=== PATIENT | male | born 1960 | race African-American/Black ===

== ENCOUNTER 2024-09-01 18:01 | Emergency (ER) | payer MEDICAID, SELFPAY ==
[2024-09-01 18:18] VITALS: BP 99/60; PULSE 73; RESP 18; TEMP 36.7; O2SAT 98; BMI 27.1
--- NOTE | 2024-09-01 18:32 | ED.GENADULT ---
HPI - General Adult General Chief complaint: General Medical Stated complaint: dizziness fall with headstrike Time Seen by Provider: 09/01/24 18:25 Source: patient Mode of arrival: EMS Limitations: no limitations History of Present Illness ED Provider: HPI narrative: Patient no significant past medical history came from homeless custodial for nausea vomiting started earlier today vomited about 2 times does have dry cough on arrival patient's asking for the food said that he did not eat food for last 2 days because he did not have any money to buy the food no diarrhea no recent travel no use of antibiotics Related Data Previous Rx's ?Medication ?Instructions ?Recorded ibuprofen 600 mg tablet 600 mg PO Q6H PRN fever or pain 09/01/24 #30 tabs ondansetron 4 mg disintegrating 4 mg PO Q6-8H PRN nausea and 09/01/24 tablet vomiting #7 tabs oseltamivir 75 mg capsule (Tamiflu) 75 mg PO BID 5 days #10 caps 09/01/24 Allergies Allergy/AdvReac Type Severity Reaction Status Date / Time Peanut Butter Allergy Anaphylaxis Verified 09/01/24 18:22 seafood Allergy Anaphylaxis Verified 09/01/24 18:22 Review of Systems Review of Systems: Yes all other systems are reviewed and are negative PMFSH Social History Social History Smoked in Last 30 Days: No Use of substances other than those prescribed or required for medical reasons: No Advance Directives: No Advance Directives Information Provided: Yes Do you have a plan to hurt others: No Plan Physical Exam ED Vital Signs: Vital Signs - 24 hr 09/01/24 18:18 Temperature 98.0 F Pulse Rate 73 Respiratory Rate 18 Blood Pressure 99/60 Pulse Oximetry 98 Oxygen Delivery Method Room Air BMI result Body Mass Index 27.1 Appearance: Alert. Oriented X3. No acute distress. Eyes: No pallor or icterus ENT: Pharynx normal. Oral Mucosa moist Neck: Normal inspection. Neck supple. CVS: Normal heart rate and rhythm. Pulses normal. Respiratory: No respiratory distress. Equal air entry bilateral, no wheezing/rales/rhonchi Abdomen: Soft and nontender. Bowel sounds are present, no mass palpable, no CVA tenderness Skin: Skin warm and dry. Normal skin color. Normal skin turgor. Extremities: No lower extremity edema. No calf tenderness Neuro: Oriented X 3. No motor deficit. Medications Administered Discontinued Medications Generic Name Dose Route Start Last Admin Trade Name Freq PRN Reason Stop Dose Admin Ondansetron HCl 4 mg 09/01/24 18:38 09/01/24 18:49 Ondansetron Hcl 4 Mg/2 Ml Vial IVPUSH 09/01/24 18:39 4 mg ONCE ONE Administration Oseltamivir Phosphate 75 mg 09/01/24 19:42 09/01/24 19:53 Oseltamivir Phosphate 75 Mg Capsule PO 09/01/24 19:43 75 mg ONCE ONE Administration Medical Decision Making Medical Decision Making MDM Narrative: Patient's influenza A with vomiting felt better after Zofran had p.o. fluids and food in the ER will discharge patient home on supportive treatment Lab Data [facility] Lab Attestation statement: I reviewed the patient's lab results. 09/01/24 18:48 09/01/24 18:48 Labs: Lab Results 09/01/24 Range/Units 18:48 WBC 5.1 (4.8-10.8) X10*3/uL RBC 4.49 L (4.60-5.80) X10*6/uL Hgb 12.3 L (14.0-18.0) g/dl Hct 37.0 L (42.0-52.0) % MCV 82.4 (80.0-98.0) fL MCH 27.4 (27.0-33.0) pg MCHC 33.2 (31.0-36.0) g/dl RDW 14.9 (11.0-16.0) % Plt Count 154 L (160-400) X10*3/uL MPV 9.3 L (9.4-12.4) fL Immature Gran % (Auto) 0.2 (0.0-0.4) % Neut % (Auto) 71.6 (45-73) % Lymph % (Auto) 14.1 L (20-40) % [place] % (Auto) 12.9 H (2-11) % Eos % (Auto) 1.0 (0-4) % Baso % (Auto) 0.2 (0-2) % Lymph # (Auto) 0.7 L (1.2-4.9) X10*3/uL [place] # (Auto) 0.7 (0.1-1.2) X10*3/uL Eos # (Auto) 0.1 (0.0-0.4) X10*3/uL Baso # (Auto) 0.0 (0.0-0.2) X10*3/uL Abs Immat Gran (auto) 0.01 (0.00-0.03) X10*3/uL Absolute Neuts (auto) 3.7 (2.0-8.3) x10*3/uL Absolute Nucleated RBC 0.000 (0.0-0.012) X10*3/uL Nucleated RBC % (auto) 0.0 (0.0-0.2) /100WBC Sodium 137 (135-145) mmol/L Potassium 3.7 (3.3-5.1) mmol/L Chloride 107 (96-108) mmol/L Carbon Dioxide 21 L (22-29) mmol/L Anion Gap 13 (12-20) BUN 17 H (9-16) mg/dL Creatinine 1.13 (0.5-1.4) mg/dL Estim Creat Clear Calc 72.4 Estimated GFR > 60 Random Glucose 98 (60-115) mg/dL Calcium 8.1 L (8.4-10.2) mg/dL Magnesium 2.0 (1.6-2.6) mg/dL Total Bilirubin 0.4 (0.0-1.0) mg/dL AST 20 (5-37) U/L ALT 13 (0-40) U/L Alkaline Phosphatase 52 (39-117) U/L Total Protein 6.7 (6.5-8.0) g/dL Albumin 3.8 (3.5-5.0) g/dL Lipase 17 (8-78) U/L Influenza Type A (PCR) POSITIVE A (Negative) Influenza Type B (PCR) NEGATIVE (Negative) RSV RNA Qual (PCR) NEGATIVE (Negative) SARS-CoV-2 RNA (RT-PCR) NEGATIVE (Negative) Discharge Plan Discharge Clinical Impression: Influenza A Patient Disposition: Home, Self-Care Instructions: Influenza (ED) Additional Instructions: Drink plenty of fluids You have influenza Tamiflu for flu Tylenol /Motrin for pain Zofran for nausea as prescribed Social distancing as advised Prescriptions: New ibuprofen 600 mg tablet 600 mg PO Q6H PRN (Reason: fever or pain) Qty: 30 0RF oseltamivir [Tamiflu] 75 mg capsule 75 mg PO BID 5 Days Qty: 10 0RF ondansetron 4 mg tablet,disintegrating 4 mg PO Q6-8H PRN (Reason: nausea and vomiting) Qty: 7 0RF Print Language: Azeri
[2024-09-01] MEDS: ondansetron HCL 4 MG/2 ML VIAL IVPUSH (18:49)
[2024-09-01 18:53] LABS: MANUAL DIFF FLAG NO
[2024-09-01 19:01] LABS: Basophils Percent Auto 0.2 % (0-2); Eosinophils Absolute Auto 0.1 X10*3/uL (0.0-0.4); Hemoglobin 12.3 g/dl (14.0-18.0); Imm Gran Abs Auto 0.01 X10*3/uL (0.00-0.03); Imm Gran Pct Auto 0.2 % (0.0-0.4); Lymphocytes Absolute Auto 0.7 X10*3/uL (1.2-4.9); Lymphocytes Percent Auto 14.1 % (20-40); Mean Corpuscular HGB Conc 33.2 g/dl (31.0-36.0); Mean Corpuscular Hemoglobin 27.4 pg (27.0-33.0); Mean Corpuscular Volume 82.4 fL (80.0-98.0); Mean Platelet Volume 9.3 fL (9.4-12.4); Monocytes Absolute Auto 0.7 X10*3/uL (0.1-1.2); Monocytes Percent Auto 12.9 % (2-11); Neutrophils Absolute Auto 3.7 x10*3/uL (2.0-8.3); Neutrophils Percent Auto 71.6 % (45-73); Platelet Count 154 X10*3/uL (160-400); Red Blood Count 4.49 X10*6/uL (4.60-5.80); Red Cell Distribution Width 14.9 % (11.0-16.0); White Blood Count 5.1 X10*3/uL (4.8-10.8)
[2024-09-01 19:12] LABS: Alanine Aminotransferase 13 U/L (0-40); Albumin Level 3.8 g/dL (3.5-5.0); Alkaline Phosphatase 52 U/L (39-117); Anion Gap 13 (12-20); Aspartate Amino Transferase 20 U/L (5-37); Bilirubin Total 0.4 mg/dL (0.0-1.0); Blood Urea Nitrogen 17 mg/dL (9-16); Calcium 8.1 mg/dL (8.4-10.2); Carbon Dioxide 21 mmol/L (22-29); Chloride 107 mmol/L (96-108); Creatinine Clr Calc Pharmacy 72.4; Estimated Glomerular Filt Rate > 60; Glucose Random 98 mg/dL (60-115); Lipase 17 U/L (8-78); Potassium 3.7 mmol/L (3.3-5.1); Sodium 137 mmol/L (135-145); Total Protein 6.7 g/dL (6.5-8.0)
--- NOTE | 2024-09-01 19:29 | PC.NURSE ---
pt a&o, warm up dinner tray, per provider okay to eat.
[2024-09-01 19:31] LABS: Influenza A PCR POSITIVE (Negative); Influenza B PCR NEGATIVE (Negative); Resp Syncy Virus RNA Qual PCR NEGATIVE (Negative); SARS COV2 PCR INHOUSE NEGATIVE (Negative)
--- OUTSIDE RECORDS SUMMARY | 2024-09-01 19:41 | XMS_ITS | Clinical Summary ---
Author Organization [facility] Address [address] [place] [address] Phone Care Team Providers Care Ore Feeder Name Role Phone Zeenat Hanna PA Primary Care Provider Vanda vailable Allergies Active Allergy Reactions Criticality Noted Date Comments Peanut Swelling 09/17/2022 Peanut Butter Flavor 07/28/2023 Shellfish Containing Products Rash,Swelling 09/21/2022 Shellfish Derived Rash,Swelling 11/28/2013 Pt states he gets a rash and his tongue swells Medications No known medications Encounters Date Type Department Care Team Description 06/11/2024 11:55 PM EST - 06/12/2024 1:[address] [facility] [address] [place] [address] Substance abuse ([facility]) (Primary Dx) Discharge Disposition: Home or Self Care from Last 3 Months Medical History Medical History Date Comments Asthma Hyperlipidemia Social History Tobacco Use Types Packs/Day Years Used Date Smoking Tobacco: Former Cigarettes Smokeless Tobacco: Never Tobacco Cessation:Counseling Given: Not Answered Alcohol Use Standard Drinks/Week Comments Not Currently 0 (1 standard drink = 0.6 oz pur e alcohol) Sex and Gender Information Value Date Recorded Sex Assigned at Not on file Gender Identity Not on file Sexual Orientation Not on file Job Start Date Occupation Industry Not on file Not on file Not on file Obstetrics History Last Filed Vital Signs Vital Sign Reading Time Taken Comments Blood Pressure 117/69 06/11/2024 10:13 PM EST Pulse 72 06/11/2024 10:13 PM EST Temperature 37.1 ??C (98.8 ??F) 06/11/2024 10:[address] Respiratory Rate 18 06/11/2024 10:13 PM EST Oxygen Saturation 100% 06/11/2024 10:13 PM EST Inhaled Oxygen Concentration - - Weight 89.4 kg (197 lb) 06/11/2024 10:13 PM EST Height 165.1 cm (5' 5 ) 06/11/2024 10:13 PM EST Body Mass Index 32.78 06/11/2024 10:13 PM EST Plan of Treatment Health Maintenance Due Date Last Done Comments Pneumococcal Vaccine: Pediatrics (0 to 5 Years) and At-Risk Patients (6 to 64 Years) (1 of 2 - PCV) 1966 Zoster Vaccines (1 of 2) 2010 RSV Immunization Patients 60+ Years Old (1 - Risk 60-74 years 1-dose series) 2020 Colorectal Cancer Screening: Colonoscopy 07/10/2022 Hepatitis C Screening 07/10/2022 Social Influencers of Health Screening 07/10/2022 COVID-19 Vaccine ( season) 2024 10/06/2020, 09/08/2020 Influenza Vaccine (#1) 2024 Depression Screening 05/28/2025 05/28/2024 Cholesterol Screening (Lipid Panel) 10/05/2027 10/05/2022, 10/05/2022, 01/02/2021, Additional history exists DTaP,Tdap,and Td Vaccines (2 - Td or Tdap) 01/02/2031 01/02/2021 HIV Screening Completed 08/15/2019 Hepatitis A Vaccines Completed 09/17/2022, 08/07/20 08 HIB Vaccines Aged Out No longer eligi ble based on patient's age to complete this topic HPV Vaccines Aged Out No longer eligi ble based on patient's age to complete this topic Hepatitis B Vaccines Aged Out No long er eligible based on patient's age to complete this topic IPV Vaccines Aged Out No longer eligi ble based on patient's age to complete this topic MMR Vaccines Aged Out No longer eligi ble based on patient's age to complete this topic Meningococcal ACWY Vaccine Aged Out N o longer eligible based on patient's age to complete this topic RSV Immunization Patients Under 20 months Aged Out No longer eligible based on patient's age to complete this topic Varicella Vaccines Aged Out No longer eligible based on patient's age to complete this topic Procedures Procedure Name Priority Date/Time Associated Diagnosis Comments ECG 12-LEAD STAT 06/11/2024 10:56 PM EST CBC WITH AUTO DIFFERENTIAL STAT 06/11/2024 10:50 PM EST METHADONE SCREEN, URINE STAT 06/11/2024 10:50 PM EST PHENCYCLIDINE, URINE STAT 06/11/2024 10:50 PM EST BUPRENORPHINE SCREEN, URINE STAT 06/11/2024 10:50 PM EST CBC AND DIFFERENTIAL STAT 06/11/2024 10:50 PM EST COMPREHENSIVE METABOLIC PANEL STAT 06/11/2024 10:50 PM EST LIPASE STAT 06/11/2024 10:50 PM EST MAGNESIUM STAT 06/11/2024 10:50 PM EST ETHANOL STAT 06/11/2024 10:50 PM EST DRUG ABUSE SCREEN 8A PANEL, URINE STAT 06/11/2024 10:50 PM EST ECG ANNOTATED 06/11/2024 from Last 3 Months Results * ECG 12 lead (06/11/2024 10:56 PM EST) Ventricular Rate ECG 70 BPM GEMUSE Atrial Rate 70 BPM GEMUSE P-R Interval 196 ms GEMUSE QRS Duration 94 ms GEMUSE Q-T Interval 400 ms GEMUSE QTc 432 ms GEMUSE P Wave [place] 66 degrees GEMUSE T [place] 49 degrees GEMUSE ECG Interpretation Normal sinus rhythm Normal ECG When compared with ECG of 10-JAN-2024 23:22, No significant change was found Confirmed by DENY MARTINEZ ([id number]) on 06/13/2024 7:44:47 AM GEMUSE 06/11/2024 10:5 6 PM EST 06/13/2024 7:44 AM EST Jennifer Maddox DO ECG ORDERABLES GEMUSE * (ABNORMAL) Drug abuse screen 8a panel, urine (06/11/2024 10:50 PM EST) Amphetamine Screen, Ur Negative Negative LAB CHEMISTRY METHOD 4 11:20 PM [facility] Comment:Certain OTC medicati ons containing ephedrine, phenylephrine, pseudoephedrine and phenylpropanolamine can cause false positive results. Barbiturate Screen, Ur Negative Negative LAB CHEMISTRY METHOD 4 11:20 PM [facility] Benzodiazepine Screen, Ur Negative Negative LAB CHEMISTRY METHOD 4 11:20 PM [facility] Cocaine Screen, Ur Positive(A ) Negative LAB CHEMISTRY METHOD 4 11:20 PM [facility] Opiate Screen, Ur Negative Negative LAB CHEMISTRY METHOD 4 11:20 PM [facility] Cannabinoid (THC) Screen, Ur Negative Negative LAB CHEMISTRY METHOD 4 11:20 PM [facility] Comment:Specimens from patie nts taking pantoprazole sodium (Protonix) have been shown to produce false positive results. Oxycodone Screen, Ur Negative Negative LAB CHEMISTRY METHOD 4 11:20 PM [facility] Fentanyl, Ur Negative Negative LAB CHEMISTRY METHOD 4 11:20 PM [facility] Urine Urine specimen obtained by clean catch procedure / Unknown Non-blood Collection / Unknown 06/11/2024 10:50 PM EST 06/11/2024 10:54 PM EST [facility] - 06/11/2024 11:20 PM EST Assay cutoffs: Amphetamines ? 1000 ng/mL Barbiturates ?200 ng/mL Benzodiazepines ?? 200 ng/mL Cocaine ? 300 ng/mL Fentanyl ?1 ng/mL Opiates ? 300 ng/mL Oxycodone ? 100 ng/mL THC ?50 ng/mL Semi-quantitative assay for screening purposes only. Unconfirmed screening result should not be used for non-medical purposes. *ALTERNATE METHOD CONFIRMATION DONE UPON REQUEST ONLY* Jennifer Maddox DO LAB URINE ORDERAB LES Performing Organization Address [facility] de Phone Number [facility] [address] [place] [address], * Buprenorphine screen, urine (06/11/2024 10:50 PM EST) [facility] Buprenorphine Screen Urine Negative Negative LAB CHEMISTRY METHOD 06/11/2024 11:20 PM EST [facility] Urine Urine specimen obtained by clean catch procedure / Unknown Non-blood Collection / Unknown 06/11/2024 10:50 PM EST 06/11/2024 10:54 PM EST Narrative [facility] - 06/11/2024 11:20 PM EST Assay cutoff 5 ng/mL Semi-quantitative assay for screening purposes only. Unconfirmed screening result should not be used for non-medical purposes. *ALTERNATE METHOD CONFIRMATION DONE UPON REQUEST ONLY* Jobyjerrica Payan Maddox DO LAB URINE ORDERAB LES Performing Organization Address [facility] Co de Phone Number [facility] [address] [place] [address], * Methadone, urine (06/11/2024 10:50 PM EST) [facility] Methadone Screen, Urine Negative Negative LAB CHEMISTRY METHOD 06/11/2024 11:20 PM EST [facility] Comment: Assay cutoff 300 ng/mL Semi-quantitative assay for screening purposes only. Unconfirmed screening result should not be used for non-medical purposes. *ALTERNATE METHOD CONFIRMATION DONE UPON REQUEST ONLY* Urine Urine specimen obtained by clean catch procedure / Unknown Non-blood Collection / Unknown 06/11/2024 10:50 PM EST 06/11/2024 10:54 PM EST Jennifer Maddox DO LAB URINE ORDERAB LES [facility] [address] [place] [address], [place] [phone] * (ABNORMAL) CBC auto differential (06/11/2024 10:50 PM EST) WBC 7.2 4.8 - 10.8 K/mcL LAB HEMETOLOGY METHOD 06/11/2024 10:59 PM EST [facility] RBC 4.70 4.50 - 5.50 M/mcL LAB HEMETOLOGY METHOD 06/11/2024 10:59 PM EST [facility] Hemoglobin 12.8(L) 13.5 - 17.5 g/dL LAB HEMETOLOGY METHOD 06/11/2024 10:59 PM [facility] Hematocrit 40.2(L) 42.0 - 54.0 % LAB HEMETOLOGY METHOD 06/11/2024 10:59 PM [facility] MCV 86.1 79.0 - 98.0 FL LAB HEMETOLOGY METHOD 06/11/2024 10:59 PM EST [facility] MCH 27.4 27.0 - 32.0 pcg LAB HEMETOLOGY METHOD 06/11/2024 10:59 PM [facility] MCHC 31.8(L) 32.0 - 37.0 g/dL LAB HEMETOLOGY METHOD 06/11/2024 10:59 PM [facility] RDW 15.0 11.0 - 15.0 % LAB HEMETOLOGY METHOD 06/11/2024 10:59 PM [facility] Platelets 218 130 - 400 K/mcL LAB HEMETOLOGY METHOD 06/11/2024 10:59 PM [facility] MPV 8.7 7.0 - 11.0 FL LAB HEMETOLOGY METHOD 06/11/2024 10:59 PM [facility] NRBC 0.0 <1.0 % LAB HEMETOLOGY METHOD 06/11/2024 10:59 PM [facility] NRBC Absolute 0.00 <0.10 K/mcL LAB HEMETOLOGY METHOD 06/11/2024 10:59 PM [facility] Neutrophils Relative 48.7 % LAB HEMETOLOGY METHOD 06/11/2024 10:59 PM [facility] Lymphocytes Relative 36.1 % LAB HEMETOLOGY METHOD 06/11/2024 10:59 PM [facility] Monocytes Relative 12.2 % LAB HEMETOLOGY METHOD 06/11/2024 10:59 PM [facility] Eosinophils Relative 2.1 % LAB HEMETOLOGY METHOD 06/11/2024 10:59 PM [facility] Basophils Relative 0.6 % LAB HEMETOLOGY METHOD 06/11/2024 10:59 PM [facility] Immature Granulocytes Relative 0.3 % LAB HEMETOLOGY METHOD 06/11/2024 10:59 PM [facility] Neutrophils Absolute 3.49 1.50 - 7.00 K/mcL LAB HEMETOLOGY METHOD 06/11/2024 10:59 PM [facility] Lymphocytes Absolute 2.58 1.00 - 5.00 K/mcL LAB HEMETOLOGY METHOD 06/11/2024 10:59 PM [facility] Monocytes Absolute 0.87 0.20 - 1.00 K/mcL LAB HEMETOLOGY METHOD 06/11/2024 10:59 PM [facility] Eosinophils Absolute 0.15 0.00 - 0.50 K/[facility] LAB HEMETOLOGY METHOD 06/11/2024 10:59 PM EST [facility] Basophils Absolute 0.04 0.00 - 0.20 K/[facility] LAB HEMETOLOGY METHOD 06/11/2024 10:59 PM EST [facility] Immature Granulocytes Absolute 0.02 0.00 - 0.03 K/[facility] LAB HEMETOLOGY METHOD 06/11/2024 10:59 PM EST [facility] Blood Venous blood specimen / Unknown Venipuncture / Unknown 06/11/2024 10:50 PM EST 06/11/2024 10:54 PM EST Jobyjerrica Maddox LAB BLOOD ORDERAB LES Performing Organization Address City/[facility]/ZIP Co de Phone Number [facility] [address] [place] [address], * Phencyclidine, urine (06/11/2024 10:50 PM EST) PCP Scrn, Ur Negative Negative LAB CHEMISTRY METHOD 06/11/2024 11:20 PM EST [facility] Comment: Assay cutoff 25 ng/mL Semi-quantitative assay for screening purposes only. Unconfirmed screening result should not be used for non-medical purposes. *ALTERNATE METHOD CONFIRMATION DONE UPON REQUEST ONLY* Urine Urine specimen obtained by clean catch procedure / Unknown Non-blood Collection / Unknown 06/11/2024 10:50 PM EST 06/11/2024 10:54 PM EST Jobyjerrica Maddox LAB URINE ORDERAB LES [facility] [address] [place] [address], [place] [phone] * Magnesium (06/11/2024 10:50 PM EST) Magnesium 2.5 1.9 - 2.6 mg/dL LAB CHEMISTRY METHOD 06/11/2024 11:26 PM EST [facility] Blood Venous blood specimen / Unknown Venipuncture / Unknown 06/11/2024 10:50 PM EST 06/11/2024 10:54 PM EST Jennifer Maddox LAB BLOOD ORDERAB LES Performing Organization Address City/[facility]/ZIP Co de Phone Number [facility] [address] [place] [address], [place] [phone] * Lipase (06/11/2024 10:50 PM EST) Lipase 51 13 - 75 unit/L LAB CHEMISTRY METHOD 06/11/2024 11:26 PM EST [facility] Blood Venous blood specimen / Unknown Venipuncture / Unknown 06/11/2024 10:50 PM EST 06/11/2024 10:54 PM EST Jennifer Maddox LAB BLOOD ORDERAB LES Performing Organization Address City/[facility]/ZIP Co de Phone Number [facility] [address] [place] [address], [place] [phone] * Ethanol (06/11/2024 10:50 PM EST) Ethanol Level 5 0 - 10 mg/dL LAB CHEMISTRY METHOD 06/11/2024 11:26 PM EST [facility] Blood Venous blood specimen / Unknown Venipuncture / Unknown 06/11/2024 10:50 PM EST 06/11/2024 10:54 PM EST Jennifer Maddox LAB BLOOD ORDERAB LES Performing Organization Address City/[facility]/ZIP Co de Phone Number [facility] [address] [place] [address], [place] [phone] * (ABNORMAL) Comprehensive metabolic panel (06/11/2024 10:50 PM EST) Sodium 142 133 - 145 mmol/L LAB CHEMISTRY METHOD 06/11/2024 11:26 PM [facility] Potassium 4.0 3.5 - 5.5 mmol/L LAB CHEMISTRY METHOD 06/11/2024 11:26 PM [facility] Chloride 108 96 - 110 mmol/L LAB CHEMISTRY METHOD 06/11/2024 11:26 PM [facility] CO2 31 21 - 32 mmol/L LAB CHEMISTRY METHOD 06/11/2024 11:26 PM [facility] Anion Gap 3 3 - 11 LAB CHEMISTRY METHOD 06/11/2024 11:26 PM [facility] Glucose 84 70 - 100 mg/dL LAB CHEMISTRY METHOD 06/11/2024 11:26 PM [facility] BUN 19 5 - 25 mg/dL LAB CHEMISTRY METHOD 06/11/2024 11:26 PM [facility] Creatinine 1.35(H) 0.70 - 1.30 mg/dL LAB CHEMISTRY METHOD 06/11/2024 11:26 PM [facility] eGFR 59(L) >=60 mL/min/1. 73m2 LAB CHEMISTRY METHOD 06/11/2024 11:26 PM [facility] Comment:Calculation based on the??Chronic Kidney Disease Epidemiology Collaboration (CKD-EPI) equation refit??without adjustment for race. BUN/Creatinine Ratio 14.1 LAB CHEMISTRY METHOD 06/11/2024 11:26 PM [facility] Calcium 9.3 8.5 - 10.5 mg/dL LAB CHEMISTRY METHOD 06/11/2024 11:26 PM [facility] AST (SGOT) 19 10 - 42 unit/L LAB CHEMISTRY METHOD 06/11/2024 11:26 PM [facility] ALT (SGPT) 26 10 - 60 unit/L LAB CHEMISTRY METHOD 06/11/2024 11:26 PM [facility] Alkaline Phosphatase 78 42 - 121 unit/L LAB CHEMISTRY METHOD 06/11/2024 11:26 PM EST [facility] Total Protein 7.2 6.0 - 8.0 g/dL LAB CHEMISTRY METHOD 06/11/2024 11:26 PM EST [facility] Albumin 3.9 3.2 - 5.0 g/dL LAB CHEMISTRY METHOD 06/11/2024 11:26 PM EST [facility] Total Bilirubin 0.5 0.0 - 1.4 mg/dL LAB CHEMISTRY METHOD 06/11/2024 11:26 PM EST [facility] Blood Venous blood specimen / Unknown Venipuncture / Unknown 06/11/2024 10:50 PM EST 06/11/2024 10:54 PM EST Jennifer Maddox DO LAB BLOOD ORDERAB LES [facility] [address] [place] [address], * ECG-Annotated (06/11/2024) Provider Onbase ECG ORDERABLES from Last 3 Months Care Teams Ore Feeder Relationship Specialty Start Date End Date Zeenat Hanna FNP [address] [place] [address] PCP - General 09/21/22
--- OUTSIDE RECORDS SUMMARY | 2024-09-01 19:41 | XMS_ITS | Clinical Summary ---
Author Organization [facility] Address [address] [place] [address] Care Team Providers Care House Piping Inspector Name Role Phone Leeanna Varela PA-C Primary Care Provider [phone] Source Comments PLEASE NOTE, if this patient is a minor, it may be UNLAWFUL to discuss sensitive information that is contained in these records (such as FAMILY PLANNING, MENTAL HEALTH or SUBSTANCE ABUSE) with the minor patient's parent or other person without the patient's specific authorization.[facility] Allergies Active Allergy Reactions Criticality Noted Date Comments Peanuts 09/17/2022 Shellfish Derived Rash,Swelling 11/28/2013 Pt states he gets a rash and his tongue swells Medications EPINEPHrine (EPIPEN) 0.3 mg/0.3 mL pen injectorIndication s:Shellfish allergy Inject 0.3 mL into the muscle as needed for anaphylaxis 2 Each 01/03/20 21 Active meclizine (ANTIVERT) 25 mg tabletIndications: Vertigo Take 1 Tablet by mouth 3 (three) times daily as needed for nausea or dizziness 90 Tablet 01/03/20 21 Active omeprazole (PRILOSEC) [address] capsule TAKE 1 CAPSULE BY MOUTH EVERY DAY IN THE MORNING BEFORE BREAKFAST 30 Capsule 3 06/11/20 21 Active melatonin 10 mg TbMPIndications:PT SD (post-traumatic stress disorder),Bipolar 1 disorder ([facility]) 08/03/20 22 Active albuterol HFA 90 mcg/actuation inhalerIndications :Mild intermittent asthma in adult without complication Inhale 2 Puffs into the lungs every 4 (four) hours as needed for shortness of breath or wheezing 6.7 g 1 09/17/19 23 Active VITAMIN B-1 100 mg tablet Take 1 Tablet by mouth once daily 90 Tablet 1 09/17/19 23 Active atorvastatin (LIPITOR) 20 mg tabletIndications: Mixed hyperlipidemia Take 1 Tablet by mouth once daily 90 Tablet 05/28/20 24 Active clotrimazole-betam ethasone (LOTRISONE) 1-0.05 % creamIndications:D ermatitis of foot APPLY TOPICALLY TWICE A DAY 15 g 1 06/29/20 24 Active lamoTRIgine (LAMICTAL) 200 mg tablet Take 1 Tablet by mouth once daily for 90 days 30 Tablet 2 07/11/20 24 025 Active QUEtiapine (SEROQUEL) 200 mg tablet Take 1 Tablet by mouth nightly at bedtime for 90 days 30 Tablet 2 07/11/20 24 025 Active hydrOXYzine pamoate (VISTARIL) 50 mg capsuleIndications :PTSD (post-traumatic stress disorder) TAKE 1 OR 2 CAPSULES BY MOUTH AT BEDTIME. 60 Capsule 5 07/11/20 24 Active Active Problems Problem Noted Date Diagnosed Date Mixed hyperlipidemia 10/06/2022 Class 2 obesity due to exces s calories without serious comorbidity with body mass index (BMI) of 36.0 to 36.9 in adult 09/17/2022 History of TB (tuberculosis) 09/17/2022 Prediabetes 01/26/2021 PTSD (post-traumatic stress disorder) 02/22/2020 Polysubstance abuse ([facility]) 06/18/2014 Overview (08/15/2019): Clean for 6 years; used to use Heroin, cocaine, marijuana, alcohol. Asthma in adult without complication 03/26/2013 COPD (chronic obstructive pulmonary disease) ([facility]) Bipolar 1 disorder ([facility]) Overview (08/15/2019): Used to Follows at [facility] 6 years ago. - Sees here. Resolved Problems Problem Noted Date Diagnosed Date Resolved Date Shellfish allergy 01/06/2021 09/17/2022 Lightheaded 09/06/2019 09/17/2022 Overview (09/06/2019): 08/30/2019: [facility] ED: felt lightheaded found to be hypotensive 85 systolic felt better with repeat BP. Did not do orthostatic hypotension. Labs including cardia, CXR, EKG unremarkable. Incarceration 08/15/2019 09/17/2022 Overview (08/15/2019): For 6 years; Released 07/17/2019. Tobacco abuse 08/15/2019 Encounters Date Type Department Care Team Description 06/12/2024 Interim Notes [address] [phone] Vicky Medina 06/06/2024 2:00 PM EDT /MH Visits [address] [phone] Jordan Schneider PMHNP Bipolar 1 disorder with moderate tamika (HCC-CMS) (Primary Dx); Manic depression (HCC-CMS); PTSD (post-traumatic stress disorder); Bipolar 1 disorder (HCC-CMS) 06/06/2024 Travel from Last 3 Months Immunizations Name Administration Dates Next Due Hep A, adult 09/17/2022,08/07/2008 Moderna COVID-19 Vaccine, re d cap blue label, 12+ Primary Series 10/06/2020,09/08/2020 TDAP 01/02/2021 Family History Medical History Relation Name Comments No Known Problems Brother Cancer Father lung cancer fro m smoking Cancer Mother lung cancer fro m smoking No Known Problems Sister Relation Name Status Comments Brother Alive Father Maternal Grandfather Maternal Grandmother Mother Paternal Grandfather Paternal Grandmother Sister Alive Social History Tobacco Use Types Packs/Day Years Used Date Smoking Tobacco: Former Cigarettes 0.1 44 Passive Smoke Exposure: Never Smokeless Tobacco: Never Tobacco Cessation:Counseling Given: Yes Comments:quit 2013 Alcohol Use Standard Drinks/Week Comments Not Currently 0 (1 standard drink = 0.6 oz pure alcohol) used to be dep on ETOH, off since 2010 Social Connections Answer Date Recorded Connectedness 1 03/05/2024 Financial Resource Strain Answer Date R ecorded Financial Resource Strain 1 2023 Stress Answer Date Recorded Stress 1 03/05/2024 Physical Activity Answer Date Recorded Physical Activity 1 03/05/2024 Food Insecurity Answer Date Recorded Food 1 03/05/2024 Transportation Needs Answer Date Record ed Transportation 1 03/05/2024 Housing Stability Answer Date Recorded Housing 1 03/05/2024 Safety and Environment Answer Date Jarvis rded Safety 1 03/05/2024 Utilities Answer Date Recorded Utilities 1 03/05/2024 Employment Answer Date Recorded Stress 2 03/05/2024 Sex and Gender Information Value Date Recorded Sex Assigned at Male 08/15/2019 1:07 PM PST Legal Sex Male 11:36 AM PDT Gender Identity Male 08/15/2019 1:07 PM PST Sexual Orientation Straight 08/15/2019 1: 07 PM PST Last Filed Vital Signs Vital Sign Reading Time Taken Comments Blood Pressure 114/70 05/28/2024 1:35 PM EDT Pulse 90 05/28/2024 1:35 PM EDT Temperature 36.8 ??C (98.2 ??F) 05/28/2024 1:35 PM ED T Respiratory Rate 16 05/28/2024 1:35 PM EDT Oxygen Saturation 97% 05/28/2024 1:35 PM EDT Inhaled Oxygen Concentration - - Weight 88.3 kg (194 lb 11.2 oz) 05/28/2024 1:35 PM EDT Height 170.2 cm (5' 7 ) 09/17/2022 1:42 PM EST Body Mass Index 30.49 09/17/2022 1:42 PM EST Plan of Treatment Upcoming Encounters Date Type Department Care Team (Late st Contact Info) Description 09/10/2024 2:00 PM EST / Visits [facility] [address] [place] [phone] Saul Solis LCSW [address] [place] [address] 09/12/2024 2:45 PM EST /MH Visits [facility] [address] [place] [phone] Jordan Schneider PMHNP [address] [place] [address] Health Maintenance Due Date Last Done Comments Dental FMX/Pano 1960 Imm-Pneumococcal (1 of 2 - PCV) 1979 CT Colonography 2005 Colonoscopy 2005 Colorectal Cancer Screening 2005 FIT/gFOBT 2005 Fecal DNA 2005 Flexible Sigmoidoscopy 2005 Imm-Zoster, Recombinant (1 of 2) 2010 Syphilis Screening 08/15/2020 08/15/2019 Diabetes Screening 10/05/2023 10/05/2022, 0 10/05/2022, 01/02/2021, Additional history exists LTBI Screening (#1) 10/05/2023 10/05/2022, Lipid Screening 10/05/2023 10/05/2022, 12/07, 01/29/2020, Additional history exists Alcohol and Drug Screen 08/08/2024 05/28/20 24, 09/17/2022, 01/02/2021, Additional history exists Depression Monitoring 08/28/2024 05/28/2024 , 10/14/2023, 04/22/2023, Additional history exists [id number] ( season) 2024 10/06/2020, 09/08/2020 Postponed from 04/08/2024 (Patient postponement) Imm-Influenza (#1) 2025 Postponed from 04/08/2024 (Patient postponement) Dental BW 03/18/2025 03/16/2024, 02/0 03/2024, 03/15/2023, Additional history exists Dental Examination 03/18/2025 03/16/2024, 0 09/15/2023, 03/15/2023, Additional history exists Dental Perio Charting 03/18/2025 03/16/2024, 022 Dental Prophy 03/18/2025 03/16/2024, 02/0 03/2024, 03/15/2023, Additional history exists Annual Preventive Care Visit 05/28/2025 05/28/2024, 09/17/2022, 08/24/2019 Hypertension Screening (#1) 05/28/2025 Tobacco Screening 05/28/2025 05/28/2024, 09/17/2022 Imm-DTaP/Tdap/Td (2 - Td or Tdap) 01/02/2031 01/02/2021 HIV Screening Completed 08/15/2019 Hepatitis C Screening Completed 08/15/2019 Imm-Hepatitis A Completed 09/17/2022, 08/07/2008 Procedures Procedure Name Priority Date/Time Associated Diagnosis Comments COMP PERIODONTAL EVALUATION - NEW/EST PATIENT Routine 03/16/2024 9:40 AM EDT Caries of enamel (incipient) BITEWINGS - FOUR RADIOGRAPHIC IMAGES Routine 03/16/2024 9:40 AM EDT Caries of enamel (incipient) Full PROPHYLAXIS - ADULT Routine 03/16/2024 9:40 AM EDT Caries of enamel (incipient) Full PERIODIC ORAL EVALUATION ESTABLISHED PATIENT Routine 03/16/2024 9:40 AM EDT Caries of enamel (incipient) QUANTIFERON-TB GOLD PLUS Routine 10/05/2022 10:39 AM EST History of TB (tuberculosis) HEMOGLOBIN GLYCOSYLATED A1C Routine 10/05/2022 10:39 AM EST Mild intermittent asthma in adult without complication Chronic obstructive pulmonary disease, unspecified COPD type (HCC-CMS) PTSD (post-traumatic stress disorder) Prediabetes Bipolar 1 disorder (HCC-CMS) History of TB (tuberculosis) Class 2 obesity due to excess calories without serious comorbidity with body mass index (BMI) of 36.0 to 36.9 in adult LIPID PANEL Routine 10/05/2022 10:39 AM EST Mild intermittent asthma in adult without complication Chronic obstructive pulmonary disease, unspecified COPD type (HCC-CMS) PTSD (post-traumatic stress disorder) Prediabetes Bipolar 1 disorder (HCC-CMS) History of TB (tuberculosis) Class 2 obesity due to excess calories without serious comorbidity with body mass index (BMI) of 36.0 to 36.9 in adult ANTIBODY HIV-1&HIV-2 SINGLE RESULT Routine 08/15/2019 2:48 PM EST Incarceration FTA-ABS, SERUM Routine 08/15/2019 2:48 PM EST Incarceration HEPATITIS A,B,C PANEL Routine 08/15/2019 2:48 PM EST Incarceration from Last 3 Months or Most Recently Relevant to Health Maintenance Results * QUANTIFERON-TB GOLD PLUS (10/05/2022 10:39 AM EST) QUANTIFERON NEGATIVE NEGATIVE [facility] Comment: Negative test result. M. tuberculosis complex infection unlikely. NIL 0.04 IU/mL su[facility] MITOGEN-NIL >10.00 IU/mL surespot [facility] TB1-NIL 0.00 IU/mL surespot [facility] TB2-NIL 0.00 IU/mL [address] [facility] Comment: The Nil tube value reflects the background interferon gamma immune response of the patient's blood sample. This value has been subtracted from the patient's displayed TB and Mitogen results. Lower than expected results with the Mitogen tube prevent false-negative Quantiferon readings by detecting a patient with a potential immune suppressive condition and/or suboptimal pre-analytical specimen handling. The TB1 Antigen tube is coated with the M. tuberculosis-specific antigens designed to elicit responses from TB antigen primed CD4+ helper T-lymphocytes. The TB2 Antigen tube is coated with the M. tuberculosis-specific antigens designed to elicit responses from TB antigen primed CD4+ helper and CD8+ cytotoxic T-lymphocytes. For additional information, please refer to https://education.[employer].[place]/faq/MED515 (This link is being provided for informational/ educational purposes only.) Blood Blood / Unknown 10/05/2022 1 0:39 AM EST 10/05/2022 10:39 AM EST Narrative [facility] - 10/11/2022 11:30 PM EST FASTING:YES Zeenat Hanna SECURITIES COUNSELOR-C LAB - BLOOD DRAW Final R esult [facility] [address] [place] [address], [address] ([facility]) [place] [address] * (ABNORMAL) HEMOGLOBIN GLYCOSYLATED A1C (10/05/2022 10:39 AM EST) HEMOGLOBIN A1C 5.8(H) <5.7 % of total Hgb [facility] Comment: For someone without known diabetes, a hemoglobin A1c value between 5.7% and 6.4% is consistent with prediabetes and should be confirmed with a follow-up test. For someone with known diabetes, a value <7% indicates that their diabetes is well controlled. A1c targets should be individualized based on duration of diabetes, age, comorbid conditions, and other considerations. This assay result is consistent with an increased risk of diabetes. Currently, no consensus exists regarding use of hemoglobin A1c for diagnosis of diabetes for children. Blood Blood / Unknown 10/05/2022 1 0:39 AM EST 10/05/2022 10:39 AM EST Narrative [facility] - 10/11/2022 11:30 PM EST FASTING:YES Zeenat Hanna SECURITIES COUNSELOR-C LAB - BLOOD DRAW Edited Result - Final [facility] [address] [place] [address], [address] (NL2) [place] [address] * (ABNORMAL) LIPID PANEL (10/05/2022 10:39 AM EST) CHOLESTEROL, TOTAL 213(H) <200 mg/dL [address] [facility] HDL CHOLESTEROL 54 > OR = 40 mg/dL [facility] TRIGLYCERIDES 124 <150 mg/dL [address] [facility] LDL-CHOLESTEROL 136(H) 99 mg/dL (calc) [facility] Comment: Reference range: <100 Desirable range <100 mg/dL for primary prevention; ?? <70 mg/dL for patients with CHD or diabetic patients with > or = 2 CHD risk factors. LDL-C is now calculated using the Earl calculation, which is a validated novel method providing better accuracy than the Friedewald equation in the estimation of LDL-C. Ger ELIAS et al. LYNN. 2013;310(19): 3505-7174 (http://education.[employer]/faq/XEY807) CHOL/HDLC RATIO 3.9 <5.0 (calc) [facility] NON-HDL CHOLESTEROL 159(H) <130 mg/dL (calc) [facility] Comment: For patients with diabetes plus 1 major ASCVD risk factor, treating to a non-HDL-C goal of <100 mg/dL (LDL-C of <70 mg/dL) is considered a therapeutic option. Blood Blood / Unknown 10/05/2022 1 0:39 AM EST 10/05/2022 10:39 AM EST Narrative [facility] - 10/11/2022 11:30 PM EST FASTING:YES Zeenat Hanna SECURITIES COUNSELOR-C LAB - BLOOD DRAW Final R esult [facility] [address] [place] [address] [address] [place] [address], [facility] [address] [place] [address] (NL2) [place] [address] * (ABNORMAL) HEPATITIS A,B,C PANEL (08/15/2019 2:48 PM EST) HEPATITIS B SURFACE ANTIBODY POSITIVE(A) NEGATIVE [facility] HEPATITIS B SURFACE ANTIGEN NEGATIVE NEGATIVE [facility] Comment: Over the counter supplements containing high doses of biotin may interfere with this assay. ??If interference is suspected, patients shoud be retested after refraining from biotin supplements for 72 hours. HEPATITIS C VIRUS DIAGNOSTIC NEGATIVE NEGATIVE [facility] HEPATITIS A ANTIBODY TOTAL POSITIVE(A) NEGATIVE [facility] Comment: Over the counter supplements containing high doses of biotin may interfere with this assay. ??If interference is suspected, patients shoud be retested after refraining from biotin supplements for 72 hours. HEPATITIS B CORE ANTIBODY NEGATIVE NEGATIVE [facility] Blood specimen (specimen) Blood / Unknown 08/15/2019 2:48 PM EST 08/15/2019 2:57 PM EST Narrative [facility] - 08/15/2019 7:04 PM EST [employer], [place] [address] Field Traffic Investigator [place] [id number] ORD# [id number] NICOLÁS Mcdermott PA-C LAB - BLOOD DRAW Edited Result - Final [address] [address], [place] [phone] * FTA-ABS, SERUM (08/15/2019 2:48 PM EST) TREPONEMAL AB NEGATIVE NEGATIVE [facility] 08/15/2019 2:48 PM EST 08/15/2019 2:57 PM EST Narrative [facility] - 08/15/2019 7:03 PM EST [employer], [place] [address] Field Traffic Investigator [place] [id number] ORD# [id number] NICOLÁS Mcdermott PA-C LAB - BLOOD DRAW Final R esult [address] [address], [place] [phone] * HIV-1 & HIV-2 ANTIBODIES (08/15/2019 2:48 PM EST) Pathologist [facility] HIV 1 AND 2 ANTIBODY SCREEN NONREACTIVE NONREACTIVE [facility] Comment: HIV testing performed at reference lab due to reagent backorder. Test performed at: [facility] [address] [place] [id number] Jose Daniel Mccain MD- Field Traffic Investigator Blood specimen (specimen) Blood / Unknown 08/15/2019 2:48 PM EST 08/15/2019 2:57 PM EST Narrative [facility] - 08/20/2019 10:54 AM EST [employer], [place] [address] Field Traffic Investigator [place] [id number] ORD# [id number] NICOLÁS Mcdermott PA-C LAB - BLOOD DRAW Final R esult [facility] [address] [place] [address], from Last 3 Months or Most Recently Relevant to Health Maintenance [place] [facility] [employer] Care Teams House Piping Inspector Relationship Specialty Start Date End Date Leeanna Varela PA-C [address] [place] [address] PCP - General Internal Medicine 06/24/23
[2024-09-01] MEDS: Oseltamivir Phosphate 75 MG CAPSULE PO (19:53)
[2024-09-01 20:26] VITALS: BP 107/52; PULSE 81; RESP 16; TEMP 36.6; O2SAT 98
[2024-09-01 20:27] VITALS: BP 107/52; PULSE 81; RESP 16; TEMP 36.6; O2SAT 98
--- NOTE | 2024-09-01 20:27 | PC.NURSE ---
Medicated per mar, reviewed discharge instructions with pt, pt verbalized understanding.
== END 2024-09-01 20:28 | disposition home or self-care (01) ==
PROVIDERS: Emergency Provider Internal Medicine
DX: J10.1 Influenza due to other identified influenza virus with other respiratory manifestations (principal); R05.9 Cough, unspecified; R11.2 Nausea with vomiting, unspecified; Z03.818 Encounter for observation for suspected exposure to other biological agents ruled out; Z59.01 Sheltered homelessness
CPT/HCPCS: 0241U; 80053; 83690; 83735; 85025; 96374; 99284; J2405